=== PATIENT | male | born 1955 | race Caucasian/White ===

== ENCOUNTER 2023-11-25 14:44 | Outpatient (CLI) | payer MEDICARE, MEDICAID ==
[~2023-11-25 14:44] MED LIST: FLO0.4C PO; ONDA8TAB9 PO
== END 2023-11-25 23:59 | disposition home or self-care (01) ==
LOC: VAS 14:44
PROVIDERS: ATTEND Nurse Practitioner
DX: M17.11 Unilateral primary osteoarthritis, right knee (principal); I82.402 Acute embolism and thrombosis of unspecified deep veins of left lower extremity; I82.512 Chronic embolism and thrombosis of left femoral vein; I82.532 Chronic embolism and thrombosis of left popliteal vein; M25.561 Pain in right knee
CPT/HCPCS: 73560; 93971